=== PATIENT | female | born 1955 | race Caucasian/White ===

== ENCOUNTER → 2017-06-01 | Outpatient (CLI) | payer BC ==
[~2017-06-01] MED LIST: CHOL100010 PO; CYAN500T PO; FAMO20TA11 PO; GLUC10007 PO; OMEG10002 PO; PYRI100T4 PO; TAMO20TA9 PO
[2017-06-01 14:11] VITALS: BP 107/68; PULSE 57; TEMP 36.8; O2SAT 99
--- NOTE | 2017-06-01 16:11 | Radiation Oncology Follow-Up ---
Radiation Oncology Follow-Up Date of Visit Jun 01, 2017. Reason For Visit One-month follow-up and cancer survivorship care plan Radiation Completion Date 04/24/17 Diagnosis (1) Breast cancer of upper-outer quadrant of left female breast Status: Acute Onset Date: 02/29/2016 Stage: ll (B) Permanent Comment: Abnormal left breast mammogram 02/24/2016 Status post core needle biopsy 02/29/2016 revealing invasive carcinoma Estrogen receptor positive, progesterone receptor positive, HER-2/su negative Status post lumpectomy and sentinel lymph node biopsy 03/08/2016 positive margin Reexcision 04/22/2016 tumor extends to inked margin Stage pT2 pN1a M0 Oncotype DX 21 BRCA1 and BRCA2 negative Status post systemic chemotherapy Adriamycin and Cytoxan every 3 weeks for 4 cycles followed by weekly Taxol for 12 weeks Status post simple mastectomy and axillary dissection 12/16/2016 Stage [id number], total of 3 nodes positive of 9 that were evaluated between the sentinel lymph node biopsy and the axillary dissection. Extranodal extension Status post completion of radiation therapy 04/24/2017. She received 6240 cGy Last Edited By: Brionna Veronica on Jun 01, 2017 16:00 History of Present Illness Ms. Larson is without a family history of breast cancer. A screening mammogram from 02/24/2016 again showed a very dense breast. If however the lateral aspect of the left breast at the 2 to 3 o'clock position 7 cm from the nipple was a spiculated mass. The spiculations extending approximately 4 cm around a 1 cm central mass. Ultrasound core biopsy was recommended and scheduled for 02/29/2016. An ultrasound of the area of interest was performed. This identified an inhomogeneous primarily hypoechoic irregular mass measuring 2.8 x 1.8 x 3.4 cm with irregular margins. Brief evaluation of the axillary region demonstrated several benign appearing lymph nodes most prominent is 1.5 cm in size. A core biopsy of the left breast at the 2 o'clock position 3 cm in the nipple revealed invasive carcinoma NOS grade 2. Estrogen receptors were strongly positive and progesterone receptors were weakly positive. HER-2/su was negative. The patient was seen by Dr. Ranulfo Lozano on 03/21/2016. He discussed treatment options with the patient included breast conservation and mastectomy as well as possible hormonal therapy, chemotherapy and radiation therapy. Patient wished to have genetic testing and a BRCA 1 to analysis was performed. This ultimately revealed no significant variants detected. Based on this information patient proceeded with a breast conserving treatment option. On 03/09/2016 Dr. Lozano performed a partial mastectomy and sentinel node biopsy. [place] node #1 revealed metastatic adenocarcinoma identified on routine staining and immunohistochemical stains for cytokeratin. This was a macro metastatic deposit measuring up to 0.4 cm with evidence of extranodal extension. Axillary sentinel node #2 showed isolated tumor cells identified on routine staining and immunohistochemical stain for cytokeratin. No extranodal extension was identified. The partial mastectomy specimen revealed a tumor measuring 3.5 x 2.0 x 1.5 cm. This was an invasive ductal carcinoma Temo grade 2 with no DCIS or LCIS identified. Margins of the initial excision were uninvolved by invasive carcinoma. However additional inferior lateral margin was negative for DCIS or invasive carcinoma. The superficial inferior margin showed evidence a positive en face margin for invasive ductal carcinoma with multiple foci noted measuring up to 0.3 cm. Case: [id number]. Patient's tissue was sent for Oncotype DX and evaluation revealing a recurrent score of 21 placing her in the low intermediate risk category. Dr. Lozano proceed with a planned reexcision on 04/22/2016 evaluation of the left superficial lateral margin showed infiltrating ductal carcinoma grade 2 at the en face section of margin. The foci of tumor measured 0.75 x 0.5 x 0.1 cm and 0.1 cm. The left additional superficial margin was negative for in situ or invasive carcinoma. Additional left inferior margin revealed infiltrating ductal carcinoma grade 2 present in the en face section of margin. The focus of tumor measured 0.5 x 0.4 cm. The left medial reexcision below the nipple also revealed infiltrating ductal carcinoma grade 2 with tumor extending to the inked margin of excision. The foci of tumor measured 0.6 x 0.4 cm to 0.2 x 0.2 cm. All these foci were histologically similar to the patient's previously identified infiltrating ductal carcinoma. Case: [id number]. Patient was seen in referral by Dr. Rosales. On 04/11/2016. He reviewed the pathology and the Oncotype DX testing results. Based on the positive lymph node he recommended adjuvant chemotherapy. The patient also was seen for a second opinion by Dr. Peter Limon on 04/13/2016. She was also concerned about the positive lymph node and a specially extranodal extension he agreed with the recommendation of adjuvant chemotherapy with consideration of dose dense before meals followed by weekly Paclitaxel as well as a PET scan for staging. However with the finding of persistent disease in multiple areas of the breast patient was felt to have multifocal disease and recommendation for consideration of mastectomy was made by Dr. Lozano. Following the review by Dr. Romero he suggested consideration of neoadjuvant chemotherapy followed by mastectomy and consideration at this time of breast reconstruction. The patient is scheduled to start her systemic chemotherapy next week. Dr. Lozano called and asked if I would see this patient for consideration and discussion of the potential role of adjuvant radiation. She completed her neoadjuvant chemotherapy 11/01/2016. She received Adriamycin and Cytoxan every 3 weeks for 4 cycles. She then received Taxol weekly for 12 weeks. She then underwent total mastectomy and axillary node dissection on 12/16/2016. Which showed no residual carcinoma. Previous excision site scar with reactive cellular changes were noted. Metastatic carcinoma was found in 2 of 7 lymph nodes. S. She has a drain in place. This is been followed by Dr. Lozano. This will be removed after she produces less than 30 mL in 24 hours. This has been steadily improving. She has mild discomfort due to the drain being in place. She gave us a pain level of 1.5. She takes ibuprofen when necessary. She completed radiation therapy to the left chest wall, supraclavicular area, and axilla on 04/24/2017. She received 6240 cGy. Interim History Was skin following radiation healed without difficulty. She had no breakdown and no peeling. She continues to have discomfort in her left shoulder. She calls this a "nerve pain" the pain can be up to level IV. She does not take [id number] pain medications for this. She states that wearing her bra will run the area in causes discomfort. If she sits in a chair that has a high back this will cause discomfort with pressure on the left posterior shoulder. There's been no swelling or redness. There is no breakdown of the skin in this area. She is noted no masses and no change of the axilla. She'll be due for mammography of the right breast in September. She is unsure as to where she is going to plan to follow-up with her mammograms. This may be dictated by her insurance. She is planning on following with Dr. Limon in medical oncology. She is on tamoxifen and did not express side effects. Allergies Coded Allergies: Amoxicillin (Verified Allergy, Severe, HIVES, 04/27/16) Azithromycin (Verified Allergy, Severe, HIVES, 04/27/16) Home Medications Scheduled Cholecalciferol (Vitamin D), 2,000 INTER.UNIT PO DAILY Cyanocobalamin (Vitamin B-12), 500 MCG PO DAILY Glucosamine Sulfate (Glucosamine), 2,000 MG PO DAILY [place]-3 Fatty Acids (Fish Oil), 2,000 MG PO DAILY Pyridoxine (Vitamin B6), 100 MG PO DAILY Tamoxifen (Nolvadex), 20 MG PO DAILY Review of Systems Gastrointestinal: Symptoms: Constipation GI Comments: last BM this AM eats prunes to help with constipation Oral: Symptoms: No Problems Respiratory: Symptoms: WNL Urinary: Symptoms: Frequency Skin: Symptoms: Faint Erythema, Dry Desquamation Breast: Right Upper Arm Measurement: 32.0 Right Mid Arm Measurement: 25.4 Right Wrist Measurement: 14.5 Left Upper Arm Measurement: 32.2 Left Mid Arm Measurement: 25.0 Left Wrist Measurement: 15.2 Arm Dominence: Right Additional Notes: She completed a distress management report and answered "no" to all questions other than she has fears about her prognosis. Physical Exam Vital Signs Date Time Temp Pulse Resp B/P (MAP) Pulse Ox O2 Delivery O2 Flow Rate FiO2 06/01/17 14:11 36.8 57 20 107/68 99 Pain: Pain Onset: since started radiation Pain Duration: constant Side: Left Patient Pain Scale: 0 - 10 Initial Pain Intensity: 4.0 Fatigue: None General Appearance: no apparent distress Eyes: normal inspection ENT: normal ENT inspection, hearing grossly normal Neck: no adenopathy, thyroid normal Respiratory/Chest: lungs clear, no respiratory distress, no accessory muscle use Breast: Examination of the left chest wall reveals resolving hyperpigmentation. There is mild skin dryness. There are no masses or tenderness no axillary adenopathy. Using the [place] score cosmesis she has a good outcome. The right pressure no masses or tenderness no axillary adenopathy. Cardiovascular: regular rate, rhythm, no gallop, no murmur Extremities: no pedal edema Neurologic/Psychiatric: no motor/sensory deficits, alert, normal mood/affect Skin: warm/dry Lymphatic: no adenopathy Additional Exam Notes: There is mild tenderness just below the left scapula. There are no masses and no erythema. There is no swelling. Assessment & Plan Plan: Continue follow-up with Dr. Lozano. She'll be seeing him in one month. Continue follow-up with Dr. Limon in medical oncology. She continues on tamoxifen. We discussed the discomfort she is having. This could be a subscapular bursitis. I recommended applying heat to this area. She can also use [id number] ibuprofen. She is very concerned about lymphedema. She's been seen and evaluated. She's been given a sleeve. She and her will be going on a vacation and she got the sleeve in preparation for flying. She was concerned about applying heat. I've shown her the exact area where to apply heat. This is not an area that was treated with radiation. This is just below the scapula. Today we completed a cancer survivorship care plan. A copy of the document was given to the patient. She was given a survivorship booklet. We asked her to return to our office in 6 months. She may call if she has any questions or concerns in the interim. Total Time In Follow-Up I spent 25 minutes speaking to the patient and performing examination. I spent 20 minutes reviewing information, preparing the survivorship document, and completing this note. Copy To Ranulfo Lozano M.D.; Brooklyn Fuller D.O.; Peter Limon M.D. Problem Qualifiers (1) Breast cancer of upper-outer quadrant of left female breast: Estrogen receptor status: positive Qualified Codes: C50.412 - Malignant neoplasm of upper-outer quadrant of left female breast; Z17.0 - Estrogen receptor positive status [ER+]
== END | disposition home or self-care (01) ==
LOC: C.ONC 14:10
PROVIDERS: ATTEND Physician Assistant Medical
DX: Z08 Encounter for follow-up examination after completed treatment for malignant neoplasm (principal); Z92.3 Personal history of irradiation; Z85.3 Personal history of malignant neoplasm of breast

== ENCOUNTER → 2017-11-29 | Outpatient (CLI) | payer OTHER ==
[~2017-11-29] MED LIST changes: +CALC-440 PO; -FAMO20TA11 PO
[2017-11-29 13:19] VITALS: BP 128/79; PULSE 71; TEMP 37; O2SAT 96
--- NOTE | 2017-11-30 08:25 | Radiation Oncology Follow-Up ---
Radiation Oncology Follow-Up Date of Visit Nov 29, 2017. Reason For Visit 6 month follow up Radiation Completion Date finished 04-24-2017 Diagnosis (1) Breast cancer of upper-outer quadrant of left female breast Status: Acute Onset Date: 02/29/2016 Stage: ll (B) Permanent Comment: Abnormal left breast mammogram 02/24/2016 Status post core needle biopsy 02/29/2016 revealing invasive carcinoma Estrogen receptor positive, progesterone receptor positive, HER-2/su negative Status post lumpectomy and sentinel lymph node biopsy 03/08/2016 positive margin Reexcision 04/22/2016 tumor extends to inked margin Stage pT2 pN1a M0 Oncotype DX 21 BRCA1 and BRCA2 negative Status post systemic chemotherapy Adriamycin and Cytoxan every 3 weeks for 4 cycles followed by weekly Taxol for 12 weeks Status post simple mastectomy and axillary dissection 12/16/2016 Stage [id number], total of 3 nodes positive of 9 that were evaluated between the sentinel lymph node biopsy and the axillary dissection. Extranodal extension Status post completion of radiation therapy 04/24/2017. She received 6240 cGy Last Edited By: Brionna Veronica on Jun 01, 2017 16:00 History of Present Illness Ms. Larson is without a family history of breast cancer. A screening mammogram from 02/24/2016 again showed a very dense breast. If however the lateral aspect of the left breast at the 2 to 3 o'clock position 7 cm from the nipple was a spiculated mass. The spiculations extending approximately 4 cm around a 1 cm central mass. Ultrasound core biopsy was recommended and scheduled for 02/29/2016. An ultrasound of the area of interest was performed. This identified an inhomogeneous primarily hypoechoic irregular mass measuring 2.8 x 1.8 x 3.4 cm with irregular margins. Brief evaluation of the axillary region demonstrated several benign appearing lymph nodes most prominent is 1.5 cm in size. A core biopsy of the left breast at the 2 o'clock position 3 cm in the nipple revealed invasive carcinoma NOS grade 2. Estrogen receptors were strongly positive and progesterone receptors were weakly positive. HER-2/su was negative. The patient was seen by Dr. Ranulfo Lozano on 03/21/2016. He discussed treatment options with the patient included breast conservation and mastectomy as well as possible hormonal therapy, chemotherapy and radiation therapy. Patient wished to have genetic testing and a BRCA 1 to analysis was performed. This ultimately revealed no significant variants detected. Based on this information patient proceeded with a breast conserving treatment option. On 03/09/2016 Dr. Lozano performed a partial mastectomy and sentinel node biopsy. [place] node #1 revealed metastatic adenocarcinoma identified on routine staining and immunohistochemical stains for cytokeratin. This was a macro metastatic deposit measuring up to 0.4 cm with evidence of extranodal extension. Axillary sentinel node #2 showed isolated tumor cells identified on routine staining and immunohistochemical stain for cytokeratin. No extranodal extension was identified. The partial mastectomy specimen revealed a tumor measuring 3.5 x 2.0 x 1.5 cm. This was an invasive ductal carcinoma Temo grade 2 with no DCIS or LCIS identified. Margins of the initial excision were uninvolved by invasive carcinoma. However additional inferior lateral margin was negative for DCIS or invasive carcinoma. The superficial inferior margin showed evidence a positive en face margin for invasive ductal carcinoma with multiple foci noted measuring up to 0.3 cm. Case: [id number]. Patient's tissue was sent for Oncotype DX and evaluation revealing a recurrent score of 21 placing her in the low intermediate risk category. Dr. Lozano proceed with a planned reexcision on 04/22/2016 evaluation of the left superficial lateral margin showed infiltrating ductal carcinoma grade 2 at the en face section of margin. The foci of tumor measured 0.75 x 0.5 x 0.1 cm and 0.1 cm. The left additional superficial margin was negative for in situ or invasive carcinoma. Additional left inferior margin revealed infiltrating ductal carcinoma grade 2 present in the en face section of margin. The focus of tumor measured 0.5 x 0.4 cm. The left medial reexcision below the nipple also revealed infiltrating ductal carcinoma grade 2 with tumor extending to the inked margin of excision. The foci of tumor measured 0.6 x 0.4 cm to 0.2 x 0.2 cm. All these foci were histologically similar to the patient's previously identified infiltrating ductal carcinoma. Case: [id number]. Patient was seen in referral by Dr. Rosales. On 04/11/2016. He reviewed the pathology and the Oncotype DX testing results. Based on the positive lymph node he recommended adjuvant chemotherapy. The patient also was seen for a second opinion by Dr. Peter Limon on 04/13/2016. She was also concerned about the positive lymph node and a specially extranodal extension he agreed with the recommendation of adjuvant chemotherapy with consideration of dose dense before meals followed by weekly Paclitaxel as well as a PET scan for staging. However with the finding of persistent disease in multiple areas of the breast patient was felt to have multifocal disease and recommendation for consideration of mastectomy was made by Dr. Lozano. Following the review by Dr. Romero he suggested consideration of neoadjuvant chemotherapy followed by mastectomy and consideration at this time of breast reconstruction. The patient is scheduled to start her systemic chemotherapy next week. Dr. Lozano called and asked if I would see this patient for consideration and discussion of the potential role of adjuvant radiation. She completed her neoadjuvant chemotherapy 11/01/2016. She received Adriamycin and Cytoxan every 3 weeks for 4 cycles. She then received Taxol weekly for 12 weeks. She then underwent total mastectomy and axillary node dissection on 12/16/2016. Which showed no residual carcinoma. Previous excision site scar with reactive cellular changes were noted. Metastatic carcinoma was found in 2 of 7 lymph nodes. S. She has a drain in place. This is been followed by Dr. Lozano. This will be removed after she produces less than 30 mL in 24 hours. This has been steadily improving. She has mild discomfort due to the drain being in place. She gave us a pain level of 1.5. She takes ibuprofen when necessary. She completed radiation therapy to the left chest wall, supraclavicular area, and axilla on 04/24/2017. She received 6240 cGy. Interim History She has been doing well in regards to her previous radiation and surgery. She is noted no masses or tenderness and no change of the axilla. She has had no swelling of her arm. She does have fatigue. She has seen her primary care provider and had laboratory studies which she has brought for review today. CBC was normal other than mild decreased white count. Thyroid function studies were checked. She is planning to discuss this further in medical oncology also. She had been seen following treatment at the lymphedema clinic. She did have a sleeve prescribed. She uses this when traveling. She continues on tamoxifen. She is up-to-date on mammography. She had mammogram of the right breast October 03, 2017. There were no suspicious calcifications, masses or areas of architectural distortion on the routine digital exams. There is benign calcification in the right breast. This was given a BI-RADS Category 2. No evidence of malignancy. Allergies Coded Allergies: Amoxicillin (Verified Allergy, Severe, HIVES, 04/27/16) Azithromycin (Verified Allergy, Severe, HIVES, 04/27/16) Home Medications Scheduled Calcium Citrate-Vitamin D (Calcium Citrate + D3), 1 TABS PO DAILY Cholecalciferol (Vitamin D), 2,000 INTER.UNIT PO DAILY Cyanocobalamin (Vitamin B-12), 500 MCG PO DAILY Glucosamine Sulfate (Glucosamine), 2,000 MG PO DAILY [place]-3 Fatty Acids (Fish Oil), 2,000 MG PO DAILY Pyridoxine (Vitamin B6), 100 MG PO DAILY Tamoxifen (Nolvadex), 20 MG PO DAILY Review of Systems Gastrointestinal: Symptoms: Constipation GI Comments: chonic constipation Oral: Symptoms: No Problems Respiratory: Symptoms: WNL Urinary: Symptoms: Incontinence, Nocturia, Frequency Comments: urgency , nocturia times 1 , no change Skin: Symptoms: No Problems Breast: Right Upper Arm Measurement: 34.0 Right Mid Arm Measurement: 25.0 Right Wrist Measurement: 14.9 Left Upper Arm Measurement: 34.0 Left Mid Arm Measurement: 25.0 Left Wrist Measurement: 15.4 Arm Dominence: Right Patient Cosmetic Evaluation: Excellent Staff Cosmetic Evalaluation: Excellent Physical Exam Vital Signs Date Time Temp Pulse Resp B/P (MAP) Pulse Ox O2 Delivery O2 Flow Rate FiO2 11/29/17 13:19 37.0 71 16 128/79 96 ECOG Performance Status: 0 Fatigue: None General Appearance: no apparent distress Eyes: normal inspection, EOMI ENT: normal ENT inspection, hearing grossly normal Neck: supple, no adenopathy, thyroid normal Respiratory/Chest: lungs clear, no respiratory distress, no accessory muscle use Breast: Well-healed incisions of the left chest wall. There are no masses or tenderness and no axillary adenopathy. There is no telangiectasia using the [place] score cosmesis she has an good the right breast showed no masses or tenderness and no axillary adenopathy. Outcome. The right breast showed no masses or tenderness and no axillary adenopathy. Cardiovascular: regular rate, rhythm, no gallop, no murmur Extremities: no pedal edema Neurologic/Psychiatric: no motor/sensory deficits, alert, normal mood/affect Skin: warm/dry Pain Management Patient Reports Pain: No Side: Bilateral Pain Location: scapula Patient Preferred Pain Scale: 0 - 10 Initial Pain Intensity: 0.0 Pain Management Plan She denies pain therefore requires no pain management. Laboratory Laboratory Results: were reviewed Laboratory Comments: Reviewed in the interim history. Pathology Pathology Results: were reviewed, and pertinent findings noted in HPI Imaging Imaging Studies: were reviewed Imaging Comments Reviewed in the interim history. Assessment & Plan Plan: Continue with scheduled mammography. Continue regular follow-up with the breast surgeon, primary care provider and medical oncologist. She plans to discuss the issues with fatigue with the medical oncologist. Today we discussed continued regular exercise to help with the fatigue. We reviewed her laboratory studies that she brought with her today and that are scanned into the arterial system. She continues use of the sleeve when traveling. We reviewed signs of lymphedema. She will call if she feels he is having any swelling. We would refer her back to the lymphedema clinic. She may call our office if she has any questions or concerns in the interim. Total Time In Follow-Up I spent 25 minutes speaking to the patient in performing examination. I spent 15 minutes reviewing information and completing this note. Copy To Kun Preston DO; Brooklyn Fuller D.O.; Peter Limon M.D. Problem Qualifiers (1) Breast cancer of upper-outer quadrant of left female breast: Estrogen receptor status: positive Qualified Codes: C50.412 - Malignant neoplasm of upper-outer quadrant of left female breast; Z17.0 - Estrogen receptor positive status [ER+]
== END | disposition home or self-care (01) ==
LOC: C.ONC 13:14
PROVIDERS: ATTEND Physician Assistant Medical
DX: Z08 Encounter for follow-up examination after completed treatment for malignant neoplasm (principal); Z92.3 Personal history of irradiation; Z85.3 Personal history of malignant neoplasm of breast

== ENCOUNTER 2024-10-07 08:46 | Observation (INO) ==
--- NOTE | 2024-09-09 15:25 | PAT Medication Instructions ---
Medication Instructions Date of Service September 09, 2024 Home Medications Medication Instructions Recorded clobetasol 0.05 % topical ointment 1 applic topical DAILY PRN LS #30 01/16/24 grams Medication List: calcium citrate 600 mg PO QAM cholecalciferol (vitamin D3) 25 mcg (1,000 unit) capsule 25 mcg PO QAM glucosamine 750 [id number]-fwg no1 644 mg-C 30 mg-ramon 1 mg tablet (Osteo Bi-Flex Triple Strength) 2 tab PO QAM magnesium citrate 100 mg tablet 300 mg PO QAM famotidine 20 mg tablet (Acid Chief Design Engineer (famotidine)) 20 mg PO QAM lorazepam 0.5 mg tablet 0.5 mg PO DAILY PRN Anxiety clobetasol 0.05 % topical ointment 1 applic topical DAILY PRN cyanocobalamin (vitamin B-12) 500 mcg chewable tablet 500 mcg PO QAM denosumab 120 mg/1.7 mL (70 mg/mL) subcutaneous solution (Xgeva) 120 mg subcut Q7D guar gum 2 tbsp PO DAILY ibuprofen 200 mg tablet 200 mg PO Q6H PRN Pain lactase 3,000 unit tablet (Lactaid) 3,000 unit PO AC PRN letrozole 2.5 mg tablet 2.5 mg PO QAM omega-3 fatty acids 1,000 mg capsule (Super [place]-3) 1,000 mg PO QAM vitamin C 45 mg-zinc citrate 4 mg-elderberry 50 mg chewable tablet (Directly) 1 tab PO QAM MEDICATION INSTRUCTIONS: Continue as directed clobetasol 0.05 % topical ointment 1 applic topical DAILY PRN (do not use after bathing prior to surgery) ASK your surgeon for instructions ibuprofen 200 mg tablet 200 mg PO Q6H PRN Pain ASK your prescriber and surgeon denosumab 120 mg/1.7 mL (70 mg/mL) subcutaneous solution (Xgeva) 120 mg subcut Q7D letrozole 2.5 mg tablet 2.5 mg PO QAM STOP taking 2 weeks before surgery glucosamine 750 rf-qnmydycuqsu-cxc no1 644 mg-C 30 mg-ramon 1 mg tablet (Osteo Bi-Flex Triple Strength) 2 tab PO QAM guar gum 2 tbsp PO DAILY omega-3 fatty acids 1,000 mg capsule (Super [place]-3) 1,000 mg PO QAM DO NOT take the morning of surgery vitamin C 45 mg-zinc citrate 4 mg-elderberry 50 mg chewable tablet (Directly) 1 tab PO QAM magnesium citrate 100 mg tablet 300 mg PO QAM calcium citrate 600 mg PO QAM cholecalciferol (vitamin D3) 25 mcg (1,000 unit) capsule 25 mcg PO QAM lactase 3,000 unit tablet (Lactaid) 3,000 unit PO AC PRN cyanocobalamin (vitamin B-12) 500 mcg chewable tablet 500 mcg PO QAM Take morning of surgery With a small sip of water, OTHERWISE NOTHING TO EAT OR DRINK AFTER MIDNIGHT: famotidine 20 mg tablet (Acid Chief Design Engineer (famotidine)) 20 mg PO QAM lorazepam 0.5 mg tablet 0.5 mg PO DAILY PRN Anxiety Other Notes If you have any questions please call us at [phone] or [phone] or [phone] or [phone]
--- NOTE | 2024-09-17 09:46 | Anesthesiology Consultation ---
Date of Service September 17, 2024 Assessment & Plan (1) Encounter for pre-operative examination: Plan - check CBC with diff STAT am DOS. 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 Heme/onc aware of upcoming orthopedic surgery. 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 OR and nursing supervisors as well as surgeon's office were made aware. - left arm restriction. - Outpatient joint assessment: Patient is currently scheduled for inpatient pathway. If re-evaluated and patient/surgeon requests outpatient pathway, patient is not advised candidate for outpatient joint program from anesthesia standpoint. Chart Review Chart Review: Acceptable Risk for Surgery and Patient seen in Pre Admission Testing Teaching & Discussion Pre-Anesthesia Teaching/Discussion Notes: Instructed NPO after midnight before surgery, except medications with 15 cc of water. Medication instructions provided according to the PAT guidelines. History Surgery Operation Date: 10/07/24 12:30 Proposed Procedures p Right Total Knee Arthroplasty - Eddie Dailey MD Height/Weight Height: 5 ft 5 in Weight: 72.4 kg Allergies Allergy/AdvReac Type Severity Reaction Status Date / Time amoxicillin Allergy Severe HIVES Verified 09/09/24 10:52 azithromycin Allergy Unknown Verified 09/09/24 10:52 Medications Home Medications Medication Instructions Recorded Confirmed Last Taken calcium citrate 600 mg PO QAM 03/31/20 09/09/24 Unknown cholecalciferol (vitamin D3) 25 25 mcg PO QAM 03/31/20 09/09/24 Unknown mcg (1,000 unit) capsule glucosamine 750 if-ufwtrlgktks-hgp 2 tab PO QAM 03/31/20 09/09/24 Unknown no1 644 mg-C 30 mg-ramon 1 mg tablet (Osteo Bi-Flex Triple Strength) magnesium citrate 100 mg tablet 300 mg PO QAM 03/31/20 09/09/24 Unknown famotidine 20 mg tablet (Acid 20 mg PO QAM 03/31/21 09/09/24 Unknown [place] [employer] (famotidine)) lorazepam 0.5 mg tablet 0.5 mg PO DAILY PRN Anxiety 03/31/21 09/09/24 Unknown clobetasol 0.05 % topical ointment 1 applic topical DAILY PRN LS #30 01/16/24 09/09/24 Unknown grams cyanocobalamin (vitamin B-12) 500 500 mcg PO QAM 09/09/24 09/09/24 Unknown mcg chewable tablet denosumab 120 mg/1.7 mL (70 mg/mL) 120 mg subcut Q7D 09/09/24 09/09/24 Unknown subcutaneous solution (Xgeva) ibuprofen 200 mg tablet 200 mg PO Q6H PRN Pain 09/09/24 09/09/24 Unknown lactase 3,000 unit tablet (Lactaid) 3,000 unit PO AC PRN Other 09/09/24 09/09/24 Unknown letrozole 2.5 mg tablet 2.5 mg PO QAM 09/09/24 09/09/24 Unknown omega-3 fatty acids 1,000 mg 1,000 mg PO QAM 09/09/24 09/09/24 Unknown capsule (Super [place]-3) vitamin C 45 mg-zinc citrate 4 1 tab PO QAM 09/09/24 09/09/24 Unknown mg-elderberry 50 mg chewable tablet (BioStable) wheat dextrin 1 gram tablet g PO 09/10/24 Unknown 3-in-1 Commode #1 ea 09/13/24 Unknown pseudoephedrine sulfate 60 mg 60 mg PO PRN Nasal Congestion 09/17/24 Unknown tablet Past Medical History Medical History (Updated 09/17/24 @ 16:22 by Jennifer Mccormick PA-C) Anxiety Degenerative disc disease, lumbar L4-L5 per pt Fibroid uterus GERD (gastroesophageal reflux disease) controlled, stable per pt History of COVID-19 (~11/2023) denies hospitalization-resolved History of postoperative nausea and vomiting with general HTN (hypertension) controlled, stable per pt Hx of breast cancer 2016 > chemo/radiation/sx > *mets to sternum dx 2023 at [facility] [address] Dr[address] Limon > xgeva injection for this Lactose intolerance Lichen sclerosus Limb alert care status left arm Lymphedema chronic left arm Osteoporosis Palpitations follows with Dr. Rashid in [place] Parathyroid adenoma PVC's (premature ventricular contractions) chronic palpitations-denies change/worsening, dizziness or lightheadedness- follows with Dr. Rashid in [place] Secondary malignancy of sternum dx 2023 at [facility] [address] Urinary incontinence Patient denies h/o stroke, seizures, heart attack, heart failure, DM, blood clots/DVTs or blood transfusions. Exercise / Class Metabolic Activity II 4-5 Yardwork/Stairs/Walk up hill (denies chest discomfort or shortness of breath with one flight of stairs) Past Family History Family History Other Leukemia Prostate cancer Stroke Denies family history of Ovarian cancer Breast cancer Colorectal cancer Uterine cancer Past Surgical History Surgical History History of carpal tunnel release right History of colonoscopy History of hysteroscopy History of lumpectomy of left breast x2 Hx of dilation and curettage Hx of mastectomy left Hx of wisdom tooth extraction S/P parathyroidectomy Past Anesthesia History No Hx of Anesthesia Complications and No Family Hx of Anesthesia Complications History of PONV History of PONV (states scop patch was not effective in the past) and Hx of Motion Sickness Social History Smoking Status: Never smoker Do You Dip or Chew Tobacco: No Hx Alcohol Use: No Hx Substance Use: No substance use type: does not use Review of Systems Patient denies chest pain, shortness of breath, dyspnea on exertion, snoring, witnessed apneas, fever, chills, cough, wheezing, or palpitations. Physical Exam Vital Signs Vitals BP 139/84 P 72 TEMP 98.4 SP02 100% on RA RESP 19 Physical Patient resting comfortably in chair in no acute distress, alert and oriented, responding appropriately throughout visit Full cervical extension range of motion without pain TMD 3.5 finger breadths Mallampati Score 2 Dentition: several crowns, denies chipped or loose teeth, caps, implants or bridges Lungs: normal respiratory effort. Good air movement, clear throughout to auscultation, no adventitious breath sounds Cardiac: regular rate and rhythm, no murmurs noted Carotid arteries: negative bruit bilat Lab Results Anesthesia Preop Results Results Anesthesia Widget: PT 10.4 Seconds (9.0-12.0) 09/17/24 PTT 27 Seconds (21-31) 09/17/24 INR 1.0 (0.9-1.1) 09/17/24 Blood Type O Negative 09/17/24 Antibody Screen NEGATIVE 09/17/24 Testing Laboratory Results 09/02/24 WBC: 5.5 H/H: 13/41 PLATELETS: 293,000 SODIUM: 140 POTASSIUM: 4.0 CHLORIDE: 102 CO2: 26 BUN: 21 CREATININE: 0.7 GLUCOSE: 137 Electrocardiogram Date: 09/17/24 NSR, rate 73 bpm Echocardiogram Date: 11/27/23 EF 55-60% Normal wall motion Severely dilated LA with notation "normal as per Gay's nurse" Mild mitral regurgitation Mild tricuspid regurgitation Stress Test Date: 02/26/24 MPHR 103% No transient ischemic dilation of the LV during stress Small, mild, fixed defect involving the basal and mid inferior wall likely due to diaphragm attenuation EF 71% Other Testing Brain MRI 08/21/24 No suspicious intracranial lesions, enhancing or otherwise. Global brain volume loss with T2/FLAIR hyperintensities, nonspecific findings most commonly associated with chronic microvascular ischemic disease. 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 Chest CT 06/07/24 Evidence of left-sided mastectomy with no operative bed recurrence. No pulmonary nodules or mass lesions, stable Two small hypodense hepatic focal lesions for triphasic CT assessment, possibly hepatic cysts Suspected lytic osseous lesion at the right side of the manubrium stem
--- NOTE | 2024-10-05 10:43 | History & Physical Report ---
Date of Service October 05, 2024 Assessment & Plan (1) Right knee DJD: 68-year-old female with underlying bags of breast cancer with advanced right knee DJD. She is failed conservative treatment. Side effect her quality life. She like to have her knee fixed. That she is still undergoing breast cancer treatment but cleared this through her oncologist Dr. Limon. Certainly this would put her at increased risk of blood clot and will be aggressive as far as mobilizing her. Plan: Orgran taken the operating do a right total knee replacement. The risks Mente this procedure explained and she understands. Informed consent was obtained. She does have a history of some GI issues and we will make sure she is taken some type of famotidine or other gastric protector. Will use aspirin and teds for DVT prophylaxis. Likely put some vancomycin in her cement due to immunosuppression. She is planned to be discharged to home with [facility] program. She does live by herself. (2) Hx of breast cancer: History of Present Illness Chief Complaint: . Persistent and progressive right knee pain and discomfort. Primary Care Provider: Tiffani Monreal MD . The patient is a 68-year-old female who was referred by Dr. Trimble for treatment of her right knee. She describes several year history of increasing right knee pain discomfort describes gotten worse over time. She has been through pretty extensive conservative treatment which has become less successful over time. Describes global pain in her knee. The more she is up and onto more it hurts. She limps more as the day goes on. She like to have her knee fixed. The patient does have a history of breast cancer and undergoing treatment for this. She is contacted her oncologist who told her to go ahead with her knee surgery. Allergies Allergy/AdvReac Type Severity Reaction Status Date / Time amoxicillin Allergy Severe HIVES Verified 09/09/24 10:52 azithromycin Allergy Unknown Verified 09/09/24 10:52 Home Medications Medication Instructions Recorded Confirmed Type calcium citrate 600 mg PO QAM 03/31/20 09/09/24 History cholecalciferol (vitamin D3) 25 25 mcg PO QAM 03/31/20 09/09/24 History mcg (1,000 unit) capsule glucosamine 750 sd-cxmoausxpgx-[id number] 2 tab PO QAM 03/31/20 09/09/24 History no1 644 mg-C 30 mg-ramon 1 mg tablet (Osteo Bi-Flex Triple Strength) magnesium citrate 100 mg tablet 300 mg PO QAM 03/31/20 09/09/24 History famotidine 20 mg tablet (Acid 20 mg PO QAM 03/31/21 09/09/24 History Delivery And Mail Sorter (famotidine)) lorazepam 0.5 mg tablet 0.5 mg PO DAILY PRN Anxiety 03/31/21 09/09/24 History clobetasol 0.05 % topical ointment 1 applic topical DAILY PRN LS #30 01/16/24 09/09/24 Rx grams cyanocobalamin (vitamin B-12) 500 500 mcg PO QAM 09/09/24 09/09/24 History mcg chewable tablet denosumab 120 mg/1.7 mL (70 mg/mL) 120 mg subcut Q7D 09/09/24 09/09/24 History subcutaneous solution (Xgeva) ibuprofen 200 mg tablet 200 mg PO Q6H PRN Pain 09/09/24 09/09/24 History lactase 3,000 unit tablet (Lactaid) 3,000 unit PO AC PRN Other 09/09/24 09/09/24 History letrozole 2.5 mg tablet 2.5 mg PO QAM 09/09/24 09/09/24 History omega-3 fatty acids 1,000 mg 1,000 mg PO QAM 09/09/24 09/09/24 History capsule (Super [place]-3) vitamin C 45 mg-zinc citrate 4 1 tab PO QAM 09/09/24 09/09/24 History mg-elderberry 50 mg chewable tablet ([place]) wheat dextrin 1 gram tablet g PO 09/10/24 History 3-in-1 Commode #1 ea 09/13/24 Rx pseudoephedrine sulfate 60 mg 60 mg PO PRN Nasal Congestion 09/17/24 History tablet Past Med/Surg History Problem List Encounter for pre-operative examination Lichen sclerosus Degenerative joint disease (DJD) of lumbar spine Breast cancer of upper-outer quadrant of left female breast (Chronic 02/29/16) s/p mastectomy, tamoxifen but d/c'd tamoxifen due to intolerance Medical History Degenerative disc disease, lumbar L4-L5 per pt Limb alert care status left arm Secondary malignancy of sternum dx 2023 at [facility] Lactose intolerance Lichen sclerosus History of postoperative nausea and vomiting with general Urinary incontinence GERD (gastroesophageal reflux disease) controlled, stable per pt Anxiety PVC's (premature ventricular contractions) chronic palpitations-denies change/worsening, dizziness or lightheadedness- follows with Dr. Rashid in [place] Palpitations follows with Dr. Rashid in [place] History of COVID-19 (~11/2023) denies hospitalization-resolved Hx of breast cancer 2016 > chemo/radiation/sx > *mets to sternum dx 2023 at [facility] Dr. Limon > xgeva injection for this Osteoporosis Lymphedema chronic left arm Fibroid uterus Parathyroid adenoma HTN (hypertension) controlled, stable per pt Surgical History History of colonoscopy History of lumpectomy of left breast x2 S/P parathyroidectomy History of hysteroscopy Hx of dilation and curettage History of carpal tunnel release right Hx of wisdom tooth extraction Hx of mastectomy left Family History Other Leukemia Prostate cancer Stroke Denies family history of Ovarian cancer Breast cancer Colorectal cancer Uterine cancer Social History Smoking Status: Never smoker Second Hand Exposure: No; Do You Dip or Chew Tobacco: No; Tobacco Cessation Education Requested by Patient: No Hx Alcohol Use: No Hx Substance Use: No Preferred Language: Bahamian Communication Ability: Effective Reagent Tender Helper Required: No Beliefs That Will Affect Care: None marital status: / Current Living Situation: Alone current occupational status: retired Other Information That Helps Us Care for You: No Feels Safe at Home: Yes Safety Concerns: Feels Safe At This Time Physical Activity Frequency Comment: Active lifestyle Assistive Devices: Contacts Review of Systems All systems reviewed & are unremarkable except as noted in HPI & below. Physical Exam . Physical examination reveals a pleasant healthy a 68-year-old female who looks younger than her stated age. Examination of the right knee reveal patient ambulates independently. Slight varus alignment to her knee. She got bony hypertrophy medially and tender medially. Range of motion about 5-1 20. No instability. No particular pain with hip motion. Constitutional WD/WN, vitals as above Respiratory normal respiratory effort, lungs clear to auscultation Cardiovascular RRR, no murmur, no edema Gastrointestinal (Abdomen) normal bowel sounds, soft, nontender, no hepatosplenomegaly Results & Data Results & Data Laboratory Results . Diagnostic Findings . X-rays of the right knee reviewed. Shows advanced right knee medial and patellofemoral compartment arthritis. This has progressed significantly over the past year. She got subchondral sclerosis and cystic changes. Significant patellofemoral disease as well. PG Care Time/CCT Total # of Minutes Spent Total Time Spent with Patient: Total time spent is greater than 50% in coordination of care (as documented) at patient's floor/unit and/or counseling patient: Coding Level of Care Code None Diagnoses Right knee DJD M17.11 Hx of breast cancer Z85.3
[~2024-10-07 08:46] MED LIST changes: +BUPIVACAINE 0.25% PF 30 ML VIAL ONE; +BUPIVACAINE 0.5 % 5 MG/1 ML PF 10ML VIAL ONE; -CALC-440 PO; -CHOL100010 PO; -CYAN500T PO; -GLUC10007 PO; -OMEG10002 PO; -PYRI100T4 PO; -TAMO20TA9 PO
--- NOTE | 2024-10-07 09:18 | History & Physical Bridge Note ---
Date of Service October 07, 2024 History & Physical Bridge Note I have examined the patient, reviewed the History & Physical and in the interval since the performance of the History & Physical I have noted the following changes of clinical significance: no changes noted
[2024-10-07] MEDS: CeleBREX 200 MG CAP PO SCH (09:24)
[2024-10-07] MEDS: ACETAMINOPHEN 500 MG TAB PO SCH ×2 (09:24→16:16)
[2024-10-07] MEDS: FAMOTIDINE 20 MG TAB PO SCH (09:24)
[2024-10-07] MEDS: LR 500ML BOLUS, THEN 15ML/HR IV SCH (09:24)
[2024-10-07] MEDS: METOCLOPRAMIDE HCL 10 MG TABLET PO SCH (09:25)
[2024-10-07] MEDS: LR 60ML/HR IV SCH (09:25)
[2024-10-07 09:27] LABS: Basophils # (auto) 0.06 K/uL (0.00-0.20); Basophils % (auto) 0.9 %; Eosinophils # (auto) 0.08 K/uL (0.00-0.50); Eosinophils % (auto) 1.2 %; Hematocrit (blood only) 41.7 % (37.0-47.0); Hemoglobin 13.8 g/dl (12.0-16.0); Immature Granulocytes # (auto) 0.03 K/uL (0.01-0.20); Immature Granulocytes % (auto) 0.4 %; Lymphocytes # (auto) 1.42 K/uL (1.20-3.40); Lymphocytes % (auto) 20.6 %; Mean Corpuscular Hemoglobin 30.9 pg (25.0-34.0); Mean Corpuscular Hgb Conc 33.1 g/dL (32.0-36.0); Mean Corpuscular Volume 93.5 fL (80.0-100.0); Mean Platelet Volume 8.8 fL (9.4-12.4); Monocytes # (auto) 0.55 K/uL (0.11-0.59); Neutrophils # (auto) 4.75 K/uL (1.40-6.50); Neutrophils % (auto) 68.9 %; Platelet Count 323 K/uL (130-400); RDW Coefficient of Variation 12.6 % (11.5-14.5); RDW Standard Deviation 43.7 fL (36.4-46.3); Red Blood Count 4.46 M/uL (4.20-5.40); White Blood Count 6.89 K/ul (4.8-10.8)
[2024-10-07] MEDS ORDERED: MIDAZOLAM HCL 1 MG/ML 2ML VIAL ONE (10:08)
[2024-10-07] MEDS ORDERED: fentaNYL citrate PF 100 MCG/2 ML VIAL ONE (10:09)
--- OUTSIDE RECORDS SUMMARY | 2024-10-07 10:22 | External Medical Summary | Summary of Care ---
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, estrogen receptor positive (HCC) Procedures [place] DENOSUMAB INJECTION Peter Limon MD [address] [place], [place] [address] [address] Phone: tel: fax: Hematology/Oncology Treatment, [address] [place] [address] Phone: tel: fax: Referral ID Status Reason Start Date Expiration Date V isits Requested Visits Authorized [id number] Authorized 08/21/2024 08/13/2099 [id number] Encounter Details Date Type Department Care Team (Late st Contact Info) Description 09/02/2024 11:45 AM EST Immunization/I njection Hematology/Oncology Treatment, [address] [place] [address] Tamie, Chair [address] Hem Onc [address] [place] [address] 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 Active Magnesium 300 MG CAPS Take by mouth. Activ e CYANOCOBALAMIN (VITAMIN B-12) 500 MCG Sublingual Tablet Take 1 Tablet by mouth in the morning. Active Cholecalciferol (VITAMIN D3) 2000 units Capsule Take 1,000 Units by mouth daily. Active Super Barnard-3 1000 MG Oral Capsule Take by mouth. Activ e Osteo Bi-Flex Adv Triple St Oral Tablet Take 1 Tab by mouth daily. Active Turmeric 500 MG Oral Capsule Take 1 Capsule by mouth in the morning. Active Diclofenac Sodium 1 % External Gel (Voltaren) Apply topically to affected area . Apply as instructed Active Clobetasol Prop-Niacinamid e 0.05-4 % External Ointment Apply topically to affected area . Apply as instructed Active Airborne Elderberry Oral Tablet Chewable Take by mouth . Active Raloxifene HCl 60 MG Oral Tablet (Evista) Take 1 Tablet by mouth in the morning. Active Benefiber Drink Mix Oral Packet Take 1 Packet by mouth in the morning. Active Letrozole 2.5 MG Oral Tablet (Femara)Indicat ions:Malignant neoplasm of upper-outer quadrant of left breast in female, estrogen receptor positive (HCC),Metastasi s to bone (HCC) Take 1 Tablet by mouth in the morning. 30 Tablet 11 4 Active documented as of this encounter (statuses as of 09/22/2024) Active Problems Problem Noted Date Diagnosed Date Metastasis to bone 08/21/2024 Malignant neoplasm of upper- outer quadrant of left female breast 05/01/2016 documented as of this encounter (statuses as of 09/22/2024) Social History Tobacco Use Types Packs/Day Years Used Date Smoking Tobacco: Never Smokeless Tobacco: Never Alcohol Use Standard Drinks/Week Comments No 0 (1 standard drink = 0.6 oz pur e alcohol) Comments Unknown Sex and Gender Information Value Date Recorded Sex Assigned at Female 05/31/2024 7:36 PM EDT Legal Sex Female 5:36 AM EST Gender Identity Female 05/31/2024 7:36 PM EDT Sexual Orientation Straight 05/31/2024 7: 36 PM EDT documented as of this encounter Nursing Notes * Tammy Dangelo LPN - 09/02/2024 11:56 AM EST 1145: Pt arrived for Xgeva injection. Dagoberto/Phos WNL. Administered in ALONSO. Pt tolerated well. Pt taking all supplements per order. Nurse and pt talked in detail about importance of letting us know if there is any dental work to be done or pain in the mouth or jaw. Pt denies any tooth or jaw pain at this time and has saw a dentist recently. Pt will return in November for another Xgeva injection. Discharged in stable condition. documented in this encounter Plan of Treatment Upcoming Encounters Date Type Department Care Team (Late st Contact Info) Description 11/14/2024 11:15 AM EDT Telemedicine Genetics Erica, [facility] [address] [place] [address] Terrie Means, [place] [address] [place] [address] 11/18/2024 10:45 AM EDT Imaging Radiology [address] [place] [address] 11/18/2024 12:00 PM EDT Imaging Radiology [address] [place] [address] 11/26/2024 11:00 AM EDT Laboratory Laboratory [facility] [address] [place] [id number] [facility] [address] [place] [address] 11/26/2024 11:30 AM EDT Office Visit Hematology/Oncology [facility] [place] [address] [place] [phone] Peter Limon MD [address] [facility] [place] [address] 11/26/2024 12:00 PM EDT Immunization/Injection Hematology/Oncology Treatment, [place] [address] [facility] [address] [place] [phone] Tamie, Chair 10 Hem Onc [facility] [address] [facility] [place] [address] Health Maintenance Due Date Last Done Comments COVID-19 Vaccine (#1) 1958 Depression Screening 1965 Hepatitis C Screening 11/24/1971 DTap/Tdap Vaccines (1 - Tdap) 1972 Pneumococcal Vaccine: 50+ Years (1 of 2 - PCV) 1972 Cologuard 1998 Colonoscopy 1998 Colorectal Cancer Screening 1998 Fecal Occult Blood Test 1998 Sigmoidoscopy 1998 Zoster Vaccines (1 of 2) 06/11/2015 04/16/2015 Influenza Vaccine (FLU shot) (#1) 2024 05/15/2016 Mammogram 12/11/2024 12/12/2023, 03/04/2023, 10/27/2021, Additional history exists Lipid Panel 12/23/2027 12/22/2022 DXA Scan 08/23/2030 08/23/2023, 06/02/2020 HPV (Gardasil) Vaccine Aged Out No lo nger eligible based on patient's age to complete this topic Hepatitis B Vaccine Aged Out No longe r eligible based on patient's age to complete this topic MENINGOCOCCAL (MENACTRA/MENVEO) Aged Out No longer eligible based on patient's age to complete this topic documented as of this encounter Medical Devices Not on filedocumented as of this encounter Visit Diagnoses Diagnosis 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)- Primary Secondary malignant neoplasm of bone and 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, estrogen receptor positive (HCC) documented in this encounter Administered Medications Inactive Administered Medications - up to 3 most recent administrations Medication Order MAR Action Action Date Dose Rate Site Denosumab (Xgeva) subcut inj 120 mg 120 mg, Subcutaneous, ONCE, On 09/02/24 at 1245, For 1 doseIndications:Metastasi s to bone (HCC),Malignant neoplasm of upper-outer quadrant of left breast in female, estrogen receptor positive (HCC) Given 09/02/2024 11:47 AM EST 120 mg Arm Right Upper documented in this encounter Care Teams [employer] Mdm Developer Relationship Specialty Start Date End Date Tiffain Monreal MD PCP - General Family Medicine 12/06/17 documented as of this encounter
[2024-10-07] MEDS ORDERED: ATROPINE SULFATE 0.1 MG/ML 10ML SYR IV PRN (10:44)
[2024-10-07] MEDS ORDERED: ONDANSETRON INJ 2 MG/ML 2 ML VIAL IV PRN ×2 (10:44→15:14)
[2024-10-07] MEDS ORDERED: ePHEDrine sulfate 50 MG/ML AMP IV PRN (10:44)
[2024-10-07] MEDS ORDERED: fentaNYL citrate PF 100 MCG/2 ML VIAL IV PRN (10:44)
[2024-10-07] MEDS: ceFAZolin 2000MG 2,000 MG/15 ML SYR IV SCH (12:00)
[2024-10-07] MEDS ORDERED: PROPOFOL IV EMULSION 10 MG/ML 20 ML VIAL IV ONE (12:01)
[2024-10-07] MEDS ORDERED: LIDOCAINE 2% 2 ML VIAL/AMP(20MG/ML) INFIL ONE (12:01)
[2024-10-07] MEDS ORDERED: ePHEDrine sulfate 50 MG/ML AMP ONE (12:14)
[2024-10-07] MEDS ORDERED: SODIUM CHLORIDE 0.9% PF INJ 10 ML VIAL ONE (12:14)
[2024-10-07] MEDS: ORTHO JOINT ANESTHETIC ONE (12:29)
[2024-10-07] MEDS: VANCOMYCIN HCL 1000MG/20ML VIAL ONE (12:29)
[2024-10-07] MEDS: ROPIV 0.5% 246mg, Ketorolac 30mg, EPINEPHrine 0.5mg in NSS INFIL SCH (12:29)
[2024-10-07] MEDS: TRANEXAMIC ACID 1,000 MG **IV Intra-op IV SCH (12:46)
--- NOTE | 2024-10-07 13:43 | Operative Report ---
PG Post Operative Report Pre & Post Diagnosis Operation Date: 10/07/24 10:40 Pre-Op Diagnosis: Right Knee Osteoarthritis Post-Op Diagnosis: Right Knee Osteoarthritis I identified the patient and participated in the time-out.: Yes Procedure Operation Date: 10/07/24 10:40 Actual Procedures p Right Total Knee Arthroplasty(Right) - Eddie Dailey MD Surgeon Eddie Dailey MD Bank Officer Antoine Foster PA-C Estimated Blood Loss 50 Findings Consistent with Post-Op Diagnosis Specimens Right knee sent for pathology. Anesthesia Type Spinal MAC Complications none Disposition Accompanied Patient To Recovery: No Indications Patient is a 68-year-old fairly active female whose had a several year history of progressive increasing right knee pain discomfort. She is failed conservative measures. X-rays show advanced knee medial compartment and degenerative arthritis. Patient talked to her medical doctor as well as her oncologist and they felt it was best to proceed with total knee arthroplasty to maintain her activity level and control her pain. Description of Procedure Operative implants consist of: 1 Biomet Vanguard size 62.5 right posterior stabilized femoral component. 2. Biomet size 67 tibial tray. 3. 10 mm post stabilized polyethylene insert. 4. 31 x 8 all poly patella. The patient was taken the op room, identified, placed on the operating table in the supine position. All conductors were appropriately padded. IV antibiotics fibra anesthesia team. A spinal anesthetic had been implemented holding area. A Russell catheter was placed in sterile fashion. Right Tetrick was then placed. The right lower extremity was then prepped and draped in usual sterile fashion. The right leg was elevated and exsanguinated with use of an Esmarch and a turn was placed at 300 mmHg. An anterior approach of the right knee was then performed to longitudinal incision centered over the patella. Sharp dissection scalp through subcutaneous tissue down the extensor mechanism. A medial parapatellar arthrotomy incision was made. Some subperiosteal dissection was carried out medially. The fat pad was resected beneath patella tendon. Lateral patellofemoral ligament was released. Patella subluxated laterally and the knee was flexed. The osteophytes taken on distal femur. ACL and PCL were then released from distal femur the tibia subluxated anteriorly. The external tibial alignment jig was then placed on the interface the tibia and adjusted 14 mm medially. The proximal tibial cut was made remove out of millimeter bone from most efficient aspect medial tibial plateau. Some osteophytes taken off medially. Tibia sized to a size 67. Attention drawn the femur. The distal femur 0 with a sharp drill. Intramedullary canal was suction. A right 5 degree valgus cutting guide was placed. The distal femoral cutting block was pinned in place. Distal femoral cut was made take an additional 3 mm of bone off distal femur. The femur was then sized and sized to 62.5. The AP cutting block was pinned parallel to the epicondylar axis which was 3 degrees of external rotation. The anterior cut, anterior chamfer, posterior cut, posterior chamfer cuts were made. The box cutting guide was placed and just slight lateral box cut was made. The knee was flexed. The remnants of the medial and lateral menisci were excised. The osteophytes were taken off the posterior aspect the femur. A trial femoral component was placed. The tibial tray was pinned in Esthela extra rotation and the drill and stem punch were used to create defect in proximal tibia for the tibial tray. Knee was then trialed and the 10 mm insert fit most appropriately. Attention drawn the patella. The patella was cleaned of all soft tissue. Patella thickness measured about 20 mm in thickness was cut down to 13. Was sized to a size 31 patella. The lug holes were drilled for 31 patella. The lateral osteophytes removed. Patella button was placed. Knee was taken through range of motion patella tracked nicely with no thumbs test. Attention was then drawn toward placement permanent components. All trial components were removed. Bone plug was placed in the distal femur limit blood loss. Double batch Palacos G cement was mixed. A Biomet Vanguard size 62.5 right posterior Byce femoral component, a size 67 tibial tray, a 10 mm posterior stabilized polyethylene insert, and a 31 x 8 all poly patella then cemented in place. The knee was brought out into full extension till cement hardened. Final cement check was then performed. The pericapsular tissues were injected with a total of 100 cc of Ortho mix. Patient did receive 1 g tranexamic acid. The tourniquet was let down for final treatment time of 49 minutes. Hemostasis assured use electrocautery. Extensor Meclomen closed with combination 1 PDS suture #1 Vicryl suture in a [id number] fashion. Extensor Meclomen checked found be intact through subcutaneous tissues then closed with 2 Dexon suture in a buried interrupted fashion skin was closed skin yobany. Leg was then cleaned and dried and a sterile dressing was Xeroform, 4 fours, sterile cast padding, Faustino bandage were applied. Patient then transferred to the recovery in stable condition. Patient tolerated procedure well and there were no complications. Antoine Foster, my physician preschool teacher's assistant, was present for the entire procedure. His assistance was essential and required for appropriate patient positioning, prepping and draping, surgical exposure, performing the technical details of the operation, placement the implants, closure of the wound, and placement of the sterile bandage. I attest to the content of the Intraoperative Record and any orders documented therein. Any exceptions are noted below.
--- NOTE | 2024-10-07 13:47 | Anesthesiology Progress Note ---
Date of Service October 07, 2024 Anesthesia Post Procedure Vital Signs Vital Signs: Temp Pulse Resp BP Pulse Ox O2 Del Method 10/07/24 09:44 36.5 C 72 20 162/81 H 100 Room Air Transfer of Care Handoff Completed per policy Notes Mental Status: alert / awake / arousable Patient Amnestic to Procedure: Yes Nausea / Vomiting: adequately controlled Pain: adequately controlled Airway Patency, RR, SpO2: stable & adequate BP & HR: stable & adequate Hydration State: stable & adequate Neuraxial Anesthesia: was administered and sensory block is resolving Anesthetic Complications: no major complications apparent
--- NOTE | 2024-10-07 14:30 | XRay Report ---
XR knee RT 1 or 2V routine CLINICAL HISTORY: Surgical Post Op COMPARISON: None FINDINGS: Right knee prosthesis shows no hardware complication. There is expected soft tissue gas. S kin yobany are present. IMPRESSION: Unremarkable postoperative exam ACT 112: Negative or not required by law. Electronically signed by: Ranulfo Vazquez M.D. 10/07/2024 2:29 PM
--- NOTE | 2024-10-07 14:53 | Anesthesiology Progress Note ---
Date of Service October 07, 2024 Anesthesia Post Procedure Vital Signs Vital Signs: Temp Pulse Pulse Resp BP Pulse Ox O2 Del Method 10/07/24 14:30 81 16 132/60 99 Room Air 10/07/24 14:20 82 16 128/60 98 Room Air 10/07/24 14:10 97.7 F 85 16 122/63 99 Room Air 10/07/24 14:00 78 17 127/61 100 Room Air 10/07/24 13:50 89 20 126/63 100 Room Air 10/07/24 13:40 80 18 123/59 L 100 Room Air 10/07/24 13:37 96.8 F L 89 20 119/63 98 Oxymask 10/07/24 09:44 97.7 F 72 20 162/81 H 100 Room Air O2 Flow Rate 10/07/24 14:30 10/07/24 14:20 10/07/24 14:10 10/07/24 14:00 10/07/24 13:50 10/07/24 13:40 10/07/24 13:37 6 10/07/24 09:44 Transfer of Care Handoff Completed per policy Notes Mental Status: alert / awake / arousable and participated in evaluation Patient Amnestic to Procedure: Yes Nausea / Vomiting: adequately controlled Pain: adequately controlled Airway Patency, RR, SpO2: stable & adequate BP & HR: stable & adequate Hydration State: stable & adequate Neuraxial Anesthesia: was administered and sensory block is resolving Anesthetic Complications: no major complications apparent and Pt Satisfied with anesthetic care
[2024-10-07] MEDS ORDERED: NALOXONE HCL 0.4 MG/1 ML VIAL/CARP IV PRN (15:14)
[2024-10-07] MEDS ORDERED: CLOBETASOL PROPIONATE 0.05% OINT 15 GM TUBE EXT PRN (15:14)
[2024-10-07] MEDS ORDERED: ALUMINUM/MAGNESIUM SUSP 30 ML UDC PO PRN (15:14)
[2024-10-07] MEDS ORDERED: METOCLOPRAMIDE HCL INJ 5 MG/ML 2 ML VIAL IV PRN (15:14)
[2024-10-07] MEDS ORDERED: HYDROmorphone INJ 0.5 MG/0.5 ML SYR IV PRN (15:14)
[2024-10-07] MEDS ORDERED: LACTASE 3000 UNIT TAB PO PRN (15:14)
[2024-10-07] MEDS ORDERED: bisacodyL 10 MG SUPP PR PRN (15:14)
[2024-10-07] MEDS ORDERED: MAGNESIUM HYDROXIDE SUSP 30 ML UDC PO PRN (15:14)
[2024-10-07] MEDS ORDERED: LORazepam 0.5 MG TAB PO PRN (15:14)
[2024-10-07] MEDS ORDERED: oxyCODONE HCL IR 5 MG TAB (IMMEDIATE RELEASE) PO PRN (15:14)
[2024-10-07] MEDS: KETOROLAC TROMETHAMINE 15 MG/ML VIAL IV SCH (16:16)
[2024-10-07] MEDS: ASCORBIC ACID 500 MG TAB PO SCH (17:36)
[2024-10-07] MEDS: DOCUSATE SODIUM 100 MG CAP PO SCH (20:14)
[2024-10-07] MEDS: SENNA 8.6 MG TAB PO SCH (20:14)
[2024-10-07] MEDS: ceFAZolin 1000MG 1,000 MG/7.5 ML SYR IV SCH (20:14)
[2024-10-07] MEDS: TRANEXAMIC ACID / 0.7% NACL 1,000 MG/100 ML BAG IV SCH (20:14)
[2024-10-07] MEDS: ASPIRIN 81 MG ECTAB PO SCH (20:15)
[2024-10-07] MEDS ORDERED: SENNA 8.6 MG TAB PO SCH (21:00)
[2024-10-08 03:12] VITALS: RESP 16
[2024-10-08 06:21] LABS: BUN Creatinine Ratio 26.6 (10-20); Calcium 8.3 mg/dl (8.6-10.3); Creatinine Clr Calc Pharmacy 66.1 ml/min; Potassium 4.3 mmol/L (3.5-5.1)
[2024-10-08 06:28] LABS: Hematocrit (blood only) 33.9 % (37.0-47.0); Hemoglobin 11.3 g/dl (12.0-16.0); Mean Corpuscular Hgb Conc 33.3 g/dL (32.0-36.0); Mean Corpuscular Volume 93.1 fL (80.0-100.0); Platelet Count 245 K/uL (130-400); RDW Coefficient of Variation 12.6 % (11.5-14.5); RDW Standard Deviation 43.6 fL (36.4-46.3); Red Blood Count 3.64 M/uL (4.20-5.40); White Blood Count 6.34 K/ul (4.8-10.8)
[2024-10-08 07:06] VITALS: BP 120/76; PULSE 70; TEMP 97.9; O2SAT 100
[2024-10-08] MEDS: dexAMETHasone 10 MG in SYRINGE 0 ML IV SCH (08:45)
[2024-10-08] MEDS: LETROZOLE 2.5 MG TAB PO SCH (08:46)
[2024-10-08] MEDS: OMEGA-3 (PURIFIED FISH OIL) 1 GM CAP PO SCH (08:47)
[2024-10-08] MEDS: MULTIVITAMIN TAB PO SCH (08:47)
[2024-10-08] MEDS: FAMOTIDINE 20 MG TAB PO SCH (08:47)
[2024-10-08] MEDS: CHOLECALCIFEROL 25 MCG (1000 UNITS) TAB PO SCH (08:47)
[2024-10-08] MEDS: CYANOCOBALAMIN (B-12) 500 MCG TABLET PO SCH (08:47)
[2024-10-08] MEDS: CALCIUM CITRATE 950 MG TAB PO SCH (08:48)
[2024-10-08] MEDS ORDERED: [UNRECOGNIZED DRUG - OTHER] PO SCH (09:00)
[2024-10-08] MEDS ORDERED: NON-FORMULARY MEDICATION (Glucosam-Chon-Msm1-C-Mang-Bosw [Osteo Bi-Flex Triple Strength] 7 PO SCH (09:00)
--- NOTE | 2024-10-08 10:55 | Orthopedic Progress Note ---
Date of Service October 08, 2024 Assessment & Plan (1) Status post total right knee replacement: Plan: 68-year-old female postop day 1 from right knee replacement doing quite well. Pains controlled. She is neurologically intact. Plan: 1. DVT prophylaxis including thigh-high teds, SCDs, aspirin twice a day for 6 weeks. 2. PT/OT. Weight-bear as tolerated. Right total knee protocol. 3. Pain control. Doing well with current pain regimen. 4. Disposition. Plan is to discharge to home with some home health and some friends help at home if she does okay in therapy today. Admission and Anticipated Discharge Date Admission Date: October 07, 2024 Subjective 68-year-old female postop day 1 from right knee replacement. She is doing pretty well. Really not having too much pain yet. Had a good night. No chest pain or shortness of breath. Not feeling dizzy or lightheaded. She is looking forward to going home today. Physical Exam Physical Exam: Physical nation is a pleasant elderly female. She sitting up in bedside chair looks pretty comfortable. Examination of the right leg reveals the dressing be clean dry and intact. She can dorsiflex and plantarflex her foot appropriately. She is neurologically intact. Respiratory: normal respiratory effort, lungs clear to auscultation Cardiovascular: RRR, no murmur, no edema Gastrointestinal (Abdomen): normal bowel sounds, soft, nontender, no hepatosplenomegaly Results & Data Vital Signs (Past 12 Hours) Vital Signs Temp Pulse Resp BP Pulse Ox O2 Del Method 10/08/24 07:05 36.6 C 70 16 120/76 100 Room Air 10/08/24 03:11 37 C 77 16 116/61 96 Room Air 10/07/24 23:09 37.3 C 73 17 121/73 96 Room Air Laboratory Results Hemoglobin is 11.3. Hematocrit is 33.9. Electrolytes are stable.
--- NOTE | 2024-10-13 12:24 | Discharge Summary ---
Date of Service October 13, 2024 Admission HPI (Per Admitting) . The patient is a 68-year-old female who was referred by Dr. Trimble for treatment of her right knee. She describes several year history of increasing right knee pain discomfort describes gotten worse over time. She has been through pretty extensive conservative treatment which has become less successful over time. Describes global pain in her knee. The more she is up and onto more it hurts. She limps more as the day goes on. She like to have her knee fixed. The patient does have a history of breast cancer and undergoing treatment for this. She is contacted her oncologist who told her to go ahead with her knee surgery. Admission Exam (Per Admitting) . Physical examination reveals a pleasant healthy a 68-year-old female who looks younger than her stated age. Examination of the right knee reveal patient ambulates independently. Slight varus alignment to her knee. She got bony hypertrophy medially and tender medially. Range of motion about 5-1 20. No instability. No particular pain with hip motion. Principal Diagnosis Same as "Discharge Diagnosis" noted below under Discharge Instructions. Discharge Data Procedures Performed Operation Date: 10/07/24 10:40 Actual Procedures p Right Total Knee Arthroplasty(Right) - Eddie Dailey MD Ordered Studies 10/07/24 05:00 US - OR guided needle placemen Stat Hospital Course (1) Status post total right knee replacement: This is a 68 year old patient admitted on 10/07/24 and underwent total knee arthroplasty. She tolerated the procedure well and there were no complications. Transferred to the PACU post op and later to the orthopedic floor for further care. She was given ancef for antibiotic prophylaxis. She was also given JOSUÉ stockings, SCDs, and aspirin for DVT prophylaxis. Hemoglobin, hematocrit, and vital signs were monitored during her hospital stay and remained stable. Did not require any blood transfusions. There were no complications during her hospital stay. By post op day #1 the patient was tolerating a regular diet, pain was reasonably controlled with oral pain medicine, and she was participating in physical therapy. On post op day #1 the patient was discharged home and set up with home health care. She was given printed discharge instructions including prescriptions for extra strength tylenol, aspirin, zofran, oxycodone, and senokot. Continue physical therapy, weight bearing as tolerated. Continue JOSUÉ stockings. Follow up approximately 2 weeks post op or sooner if there are problems or concerns. Discharge Plan Discharge Items Patient Disposition: Home - Home Health Services Reason For Visit: Right Knee Osteoarthritis Discharge Diagnosis: Right Knee Replacement Activity: Per Instructions section Weightbearing: Full weightbearing Non-emergency contact: Surgeon Call non-emergency contact if: you have any medication questions Follow-up/Referrals: Tfifani Monreal MD [Primary Care Provider] - 10/14/24 3:15 pm Diet: Regular Addtl Attending Provider Instructions: ACTIVITY RECOMMENDATIONS: Diet: * You may resume previous diet. Physical Therapy: * You will go to physical therapy three times each week for four to six weeks after your surgery in order to regain your knee range of motion and to retrain your knee to work properly. * It is just as important to make sure you are getting your knee perfectly straight as it is to regain your knee bend. * Taking a pain pill an hour before therapy can help you have a more productive and comfortable therapy session. Home Exercise: * You were shown a series of exercises (heel props, heel slides, etc.) in the hospital. Do these exercises three to four times each day including the exercises you were shown in physical therapy. Walking: * Get up and walk several times each day. For the first four weeks, try not to stand or walk for more than one hour at a time. If you do stand or walk for more than one hour, you will not hurt anything, but your knee and leg will likely swell. * As you feel comfortable, you may change from the walker or crutches to a cane and then to independent walking. MEDICATIONS: New Medicine: * You will likely be taking one or more of these medications: 1. Oxycodone - A quick and shorter-acting pain medication. Take one to two tablets every six hours to lessen your pain. 2. Aspirin - Thins your blood to lessen the chance of forming a blood clot. * The most common side effects of pain medicine and iron are nausea and constipation. If nausea or constipation is too much of a problem or if you have any questions about your new medicines or doses, call [facility] at . We will try to help you manage these issues. "VERY IMPORTANT TO READ AND REVIEW" Pain: * The immediate post-operative period after knee replacement surgery is often quite painful. * You are given a prescription for pain medicine. You should take it, as directed, when you need it, especially before physical therapy and before going to bed. Pain that interferes with sleep is very common and can last several months. * You will likely need pain medicine for the first four to six weeks. It will not stop all of the pain. The pain will lessen and as you feel better, you may change to milder pain medicine such as Tylenol. * The most common side effects of pain medicine are nausea and constipation, so don't take more than you need. SPECIAL CARE INSTRUCTIONS: TEDs/Elastic Stockings: * The white elastic stockings help limit swelling and prevent blood clots from forming in your legs. The more you wear them, the more they work. * Wear them for six weeks after knee replacement surgery and four weeks after partial knee replacement. Incision Site Care: * Remove dressing postoperative day 2 and then shower. Keep direct shower pressure off the incision site. * After showering, cover yobany with dry gauze and change daily or more frequently if the dressing is getting saturated with drainage. * Use the JOSUÉ stockings to hold dressing in place. DO NOT apply tape on the skin. * May completely stop using bandage if wound is dry and no drainage * [place] are removed between 2 and 3 weeks post-op. If your follow-up appointment is made before 2 weeks, please have your appointment re- scheduled. It is too early to remove the yobany. Prevention of Infection: * Take antibiotics one hour before any dental cleaning, dental work, urological procedure, gastrointestinal procedure or any invasive surgery in order to prevent your new joint from getting infected. * You may get the antibiotics from the doctor performing the procedure or you may call our office at [phone] before and we will call in a prescription to the pharmacy of your choice. Things to Watch For: * Drainage from the incision site that occurs more than one week after your surgery. * Severely increased knee/leg pain or swelling. * Increased redness at the incision site. * Fever above 102 degrees Fahrenheit. * Unusual chest pain or shortness of breath. * Unusual pain or burning with urination. Call [facility] at [phone] with any of the above problems or if you have any questions about your medicines or recovery. FOLLOW UP VISIT: Make an appointment to see your doctor for approximately two weeks after surgery for a progress check and staple removal by calling the office at [phone]. Pending Studies at Discharge: No Stand-Alone Forms: My [facility], Smoking Cessation Medications and DC Order Prescriptions: Continued calcium citrate 200 mg (950 mg) tablet 600 mg PO QAM magnesium citrate 100 mg tablet 300 mg PO QAM Osteo Bi-Flex Triple Strength 750 mg-644 mg- 30 mg-1 mg tablet 2 tab PO QAM Rx Instructions: give with meal/snack cholecalciferol (vitamin D3) 25 mcg (1,000 unit) capsule 25 mcg PO QAM lorazepam 0.5 mg tablet 0.5 mg PO DAILY PRN (Reason: Anxiety) clobetasol 0.05 % ointment 1 applic topical DAILY PRN (Reason: LS) Qty: 30 0RF (DME) 3-in-1 Commode Misc See Rx Instructions .MEDSUPPLY Qty: 1 0RF Rx Instructions: As directed oxycodone 5 mg tablet 5 - 10 mg PO Q6 PRN (Reason: pain) Qty: 40 0RF Rx Instructions: Take as needed for pain sennosides [Senokot] 8.6 mg tablet 8.6 mg PO BID 14 Days Qty: 28 0RF Rx Instructions: Take two times a day to prevent/treat constipation aspirin [Ricardo Low Dose Aspirin] 81 mg tablet,delayed release (DR/EC) 81 mg PO BID 45 Days Qty: 90 0RF acetaminophen [Tylenol Extra Strength] 500 mg tablet 1,000 mg PO TID 30 Days Qty: 180 0RF Rx Instructions: Take 3 times per day to lessen pain. ondansetron 4 mg tablet,disintegrating 4 mg PO Q8 PRN (Reason: nausea) Qty: 20 1RF Rx Instructions: Take as needed for nausea famotidine [Acid Communication Engineer (famotidine)] 20 mg tablet 20 mg PO QAM omega-3 fatty acids [Super [place]-3] 1,000 mg Capsule 1,000 mg PO QAM lactase [Lactaid] 3,000 unit Tablet 3,000 unit PO AC PRN (Reason: Other) Rx Instructions: administer with first bite of dairy food letrozole 2.5 mg Tablet 2.5 mg PO QAM cyanocobalamin (vitamin B-12) 500 mcg Tablet,Chewable 500 mcg PO QAM [facility] 45-4-50 mg Tablet,Chewable 1 tab PO QAM Xgeva 120 mg/1.7 mL (70 mg/mL) Solution 120 mg SUBCUT Q7D Patient Comments: only 1 injection so far, no more until after November 2024 per pt wheat dextrin 1 gram Tablet PO pseudoephedrine sulfate 60 mg Tablet 60 mg PO PRN (Reason: Nasal Congestion) Discontinued ibuprofen 200 mg Tablet 200 mg PO Q6H PRN (Reason: Pain) Krames/Other Patient Handouts: Knee Replace Home Recovery Admission Data Admit Date/Time: 10/07/24 13:37 Attending Provider: Eddie Dailey Admit Provider: Eddie Dailey Primary Care Provider: Tiffani Monreal Other Providers: [facility]; [facility] Other Interventions: Discharge Summary Assessment (RN) Last Done: 10/08/24 11:14
== END 2024-10-08 12:44 | disposition home health service (06) ==
LOC: 3E 08:46 → ASU 08:46